=== PATIENT | male | born 1995 | race Caucasian/White ===

== ENCOUNTER 2017-10-14 17:56 | Emergency (ER) | payer OTHER ==
[~2017-10-14] VITALS: Ht 172.7 cm; Wt 106.8 kg
[2017-10-14] MEDS ORDERED: POVIDONE-IODINE 10% 15 ML SOLUTION UD TP ONE (18:30)
[2017-10-14] MEDS ORDERED: BACITRACIN 0.9 GM PACKET OINTMENT TP ONE (18:30)
[2017-10-14] MEDS ORDERED: IBUPROFEN 800 MG TABLET PO ONE (18:30)
[2017-10-14] MEDS ORDERED: LIDOCAINE HCL 1% 10 ML VIAL INJ ONE (18:45)
[2017-10-14 19:13] VITALS: BP 136/68
== END 2017-10-14 19:34 | disposition home or self-care (01) ==
LOC: EMS 18:00
DX: S99.822A Other specified injuries of left foot, initial encounter (principal); X58.XXXA Exposure to other specified factors, initial encounter; Y93.89 Activity, other specified; Y92.89 Other specified places as the place of occurrence of the external cause; Y99.8 Other external cause status
CPT/HCPCS: 11730; 99283; J3490